=== PATIENT | male | born 1980 | race Caucasian/White ===

== ENCOUNTER 2024-08-11 04:13 | Emergency (ER) | payer SELFPAY ==
[~2024-08-11] VITALS: Ht 172.7 cm; Wt 77.1 kg
[2024-08-11] MEDS ORDERED: ONDANSETRON 4 MG/2 ML VIAL ONE (04:57)
[2024-08-11] MEDS ORDERED: FAMOTIDINE. 20 MG/2 ML VIAL IV ONE (04:57)
[2024-08-11 04:58] LABS: BASOPHILS # (AUTO) 0.1 K/UL (0.0-0.2); EOSINOPHILS % (AUTO) 0.1 % (0.0-7.0); HEMATOCRIT 47.3 % (36.7-47.1); LYMPHOCYTES # (AUTO) 1.1 K/uL (0.8-4.8); LYMPHOCYTES % (AUTO) 9.6 % (20.5-51.5); MEAN CORPUSCULAR HEMOGLOBIN 33.8 uug (23.8-33.4); MEAN CORPUSCULAR HGB CONC 36 g/dL (32.5-36.3); MEAN CORPUSCULAR VOLUME 94.2 fL (73.0-96.2); MONOCYTES # (AUTO) 0.6 K/uL (0.1-1.30); MONOCYTES % (AUTO) 5.1 % (0.0-11.0); NEUTROPHILS # (AUTO) 9.9 K/uL (1.8-8.9); NEUTROPHILS % (AUTO) 84.2 % (38.5-71.5); PLATELET COUNT (AUTO) 103 K/uL (152-348); RED BLOOD CELL COUNT(AUTO) 5.03 MIL/uL (4.06-5.63); WHITE BLOOD COUNT (AUTO) 11.8 K/uL (3.6-10.2)
[2024-08-11] MEDS ORDERED: MVI-12 10 ML ONE (04:58)
[2024-08-11] MEDS ORDERED: THIAMINE HCL 200 MG/2 ML VIAL ONE (04:59)
[2024-08-11] MEDS: ONDANSETRON 4 MG/2 ML VIAL IV ONE (05:01)
[2024-08-11] MEDS: FAMOTIDINE. 20 MG/2 ML VIAL IV ONE (05:01)
[2024-08-11] MEDS: IV NS 1000 ML 1,000 ML IV ONE (05:01)
[2024-08-11] MEDS: MVI-12 10 ML IV ONE (05:01)
[2024-08-11] MEDS: THIAMINE HCL 200 MG/2 ML VIAL IV ONE (05:02)
[2024-08-11 05:15] LABS: ALANINE AMINOTRANSFERASE < 6 U/L (16-63); ALBUMIN 3.8 g/dL (3.4-5.0); ALKALINE PHOSPHATASE 179 U/L (50-136); ASPARTATE AMINOTRANSFERASE < 5 U/L (15-37); BILIRUBIN,DIRECT 0.4 mg/dL (0.0-0.2); BILIRUBIN,TOTAL 1.3 mg/dL (0.2-1.0); CALCIUM 8.4 mg/dL (8.5-10.1); CARBON DIOXIDE 25 mmol/L (21-32); CHLORIDE 95 mmol/L (98-107); CREATININE 0.6 mg/dL (0.6-1.3); GLUCOSE 275 mg/dL (74-106); LIPASE 331 U/L (16-77); POTASSIUM 3.4 mmol/L (3.5-5.1); SODIUM SERUM 135 mmol/L (136-145); TOTAL PROTEIN, SERUM 7.6 g/dL (6.4-8.2); UREA NITROGEN, BLOOD 10 mg/dL (7-18)
[2024-08-11] MEDS ORDERED: POTASSIUM CHLORIDE 20 MEQ TAB.PRT.SR ONE (05:59)
[2024-08-11] MEDS: POTASSIUM CHLORIDE 20 MEQ TAB.PRT.SR PO ONE (06:02)
[2024-08-11] MEDS ORDERED: CHLO25CA22 PO (06:29)
[2024-08-11] MEDS ORDERED: ONDA4TAB5 PO (06:29)
[2024-08-11] MEDS ORDERED: FAMO-132 PO (06:29)
[2024-08-11 06:38] VITALS: BP 133/88; TEMP 98; O2SAT 98
== END 2024-08-11 06:38 | disposition home or self-care (01) ==
LOC: ER 04:22
DX: R10.9 Unspecified abdominal pain (principal); R11.2 Nausea with vomiting, unspecified; R10.13 Epigastric pain; R73.9 Hyperglycemia, unspecified; R68.83 Chills (without fever); K85.90 Acute pancreatitis without necrosis or infection, unspecified; E86.0 Dehydration; F10.90 Alcohol use, unspecified, uncomplicated; E87.6 Hypokalemia; Z79.899 Other long term (current) drug therapy; Y90.9 Presence of alcohol in blood, level not specified
CPT/HCPCS: 99284; 96374; 96375; 96361; 80076; 80048; 83690; 83735; 85025; 85730; 36415; J3490 ×2; J2405; J3411; J7040; A4606; A4663